=== PATIENT | female | born 1980 | race Caucasian/White ===

== ENCOUNTER → 2020-09-06 | Outpatient (CLI) | payer BC, OTHER ==
[~2020-09-06] MED LIST: CIPROFLOXACIN500 M1 PO; FLAGYL500 MG PO; HUMALOG100 UNIT/2; NORCO 5-325 TA1 EACH PO; SYNTHROID112 MCG PO
[2020-09-06 09:09] LABS: CREATININE 0.9 mg/dL (0.6-1.0)
== END ==
LOC: CAT 08:26
PROVIDERS: ATTEND Nurse Practitioner
DX: R10.9 Unspecified abdominal pain (principal)